=== PATIENT | male | born 1995 | race Caucasian/White ===

== ENCOUNTER 2018-11-15 07:24 | Emergency (ER) | payer MEDICAID ==
[~2018-11-15] VITALS: Ht 162.6 cm; Wt 46.0 kg
[~2018-11-15 07:24] MED LIST: CALCIUM; LANS30CA52; VIT D3
[2018-11-15 07:30] VITALS: BP 139/85
[2018-11-15] MEDS ORDERED: ONDANSETRON HCL 4MG/2ML INJ IV STA (09:35)
[2018-11-15] MEDS ORDERED: SODIUM CHLORIDE 0.9% 1,000 ML IV ONE (09:35)
[2018-11-15] MEDS ORDERED: KETOROLAC 30MG/ML VIAL IV STA (09:35)
[2018-11-15 10:09] LABS: HEMATOCRIT. 55.5 % (42.0-52.0); MEAN CORPUSCULAR HEMOGLOBIN 30.3 pg (28.0-32.0); MEAN CORPUSCULAR VOLUME 88.6 fL (80.0-94.0); MEAN PLATELET VOLUME 8.9 fl (7.4-10.4); PLATELET 204 x1000/uL (130-400); RED BLOOD CELL COUNT 6.27 mill/uL (4.7-6.1); RED CELL DISTRIBUTION WIDTH 12.9 % (11.6-14.6)
[2018-11-15 10:14] LABS: CHLORIDE 103 mEq/L (98-107)
[2018-11-15 10:15] LABS: INR 1.1; PROTHROMBIN TIME 11.3 sec (9.1-11.1)
[2018-11-15 10:36] LABS: CLARITY URINE CLOUDY (CLEAR); COLOR URINE DARK YELLOW (YELLOW); KETONES URINE 1+ (NEGATIVE); LEUKOCYTE ESTERASE URINE TRACE (NEGATIVE); NITRITE URINE NEGATIVE (NEGATIVE); OCCULT BLOOD URINE 3+ (NEGATIVE); PROTEIN URINE 1+ (NEGATIVE); SPECIFIC GRAVITY URINE 1.037 (1.005-1.030)
[2018-11-15 10:38] LABS: PLATELET ESTIMATE NORMAL
[2018-11-15] MEDS ORDERED: MORPHINE SULFATE 4 MG/ML CPJ (NOT FOR IM USE) IV ONE (11:00)
== END 2018-11-15 13:00 | disposition home or self-care (01) ==
LOC: ER 07:33
DX: R19.7 Diarrhea, unspecified (principal); R11.0 Nausea; K21.9 Gastro-esophageal reflux disease without esophagitis; Z91.011 Allergy to milk products
CPT/HCPCS: 36415; 80053; 81003; 83690; 85025; 85610; 96361; 96374; 96375; 99283; J1885; J2270; J2405; J7030; Z7610

== ENCOUNTER 2023-08-30 21:11 | Emergency (ER) | payer SELFPAY ==
[~2023-08-30] VITALS: Ht 157.5 cm; Wt 48.0 kg
[~2023-08-30 21:11] MED LIST changes: +ELUX100T PO
[2023-08-30 21:47] VITALS: BP 108/63; PULSE 72; RESP 17; TEMP 97.6; O2SAT 98
[2023-08-31] MEDS ORDERED: ELUX100T MT (04:40)
== END 2023-08-31 04:59 | disposition home or self-care (01) ==
LOC: ER 21:11
DX: Z76.0 Encounter for issue of repeat prescription (principal); Z79.899 Other long term (current) drug therapy
CPT/HCPCS: 99283

== ENCOUNTER 2025-02-05 20:13 | Emergency (ER) | payer MEDICAID, OTHER ==
[~2025-02-05] VITALS: Ht 154.9 cm; Wt 52.0 kg
[~2025-02-05 20:13] MED LIST changes: +ELUX100T MT
[2025-02-05 20:27] VITALS: O2SAT 99
[2025-02-05] MEDS ORDERED: ELUX100T MT ×2 (20:50→21:05)
[2025-02-05 21:19] VITALS: BP 116/71; PULSE 59; RESP 16; TEMP 36.6; O2SAT 100
== END 2025-02-05 21:20 | disposition home or self-care (01) ==
LOC: ER 20:13
DX: K58.9 Irritable bowel syndrome, unspecified (principal); Z76.0 Encounter for issue of repeat prescription; Z91.011 Allergy to milk products; Z79.899 Other long term (current) drug therapy
CPT/HCPCS: 99281; 99282